=== PATIENT | male | born 1980 | race African-American/Black ===

== ENCOUNTER 2016-08-22 13:18 | Emergency (ER) | payer OTHER ==
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
[~2016-08-22 13:18] MED LIST: HYDROCODON-ACE1 EAC7 PO; MEDROL DOSEPAK4 MG PO; PENICILLIN V P250 MG PO
== END 2016-08-22 17:20 | disposition home or self-care (01) ==
LOC: CED 13:18 → CFTX 15:35 → CED 15:35 → CFTX 17:20
DX: S63.522A Sprain of radiocarpal joint of left wrist, initial encounter (principal); V49.10XA Passenger injured in collision with unspecified motor vehicles in nontraffic accident, initial encounter; Y92.410 Unspecified street and highway as the place of occurrence of the external cause
CPT/HCPCS: 29125; 73110; 73130; 99283